=== PATIENT | female | born 2000 | race Caucasian/White ===

== ENCOUNTER 2019-01-25 12:30 | Emergency (ER) | payer OTHER ==
--- OUTSIDE RECORDS SUMMARY | 2019-01-25 13:31 | XMS REPORT | Continuity of Care Document ---
:2000 External Reference #:[id number] Author Name Rachelle Bee, PNP-BC, DIE TRY OUT WORKER, Ibclc Address [address] [place] [address] [address] [place] [address] Care Team Providers Name Role Phone Rachelle Bee PNP-BC, DIE TRY OUT WORKER, Ibclc Care Team Information Paid Search Marketing Strategist - Family Problems Active Problems Provider Date Asthma Martha Carmona M.D. Onset: 03/08/2015 Migraine without aura, not refractory Bridgette Vincent M.D. Onset: 12/16/2015 Social History Type Date Description Comments Sex Unknown ETOH Use Never used alcohol Tobacco Use Start: Unknown Patient has never smoked Tobacco Use Start: Unknown Parents DO Not Smoke Smoking Status Reviewed: 01/19/19 Parents DO Not Smoke Allergies, Adverse Reactions, Alerts Description No Known Drug Allergies Medications Active Medications SIG Qnty Indications Ordering Provider Date Olopatadine HCL 1-2 drops each 5ml H10.13 Rachelle Bee, 01/19/2019 0.1% eye twice a day PNP-BC, DIE TRY OUT WORKER, Solution as needed Ibclc Paxil 1 by mouth 30tabs F32.0 Rachelle Bee, 09/30/2018 20mg Tablets every day PNP-BC, DIE TRY OUT WORKER, Ibclc Ventolin HFA 1-2 puffs every 18gm Rachelle Bee, 02/09/2018 108(90Base) 4 hours as PNP-BC, DIE TRY OUT WORKER, mcg/Act Aerosol needed Ibclc Norethindrone take 1 pill by 63tabs Z30.41 Rachelle Bee, 12/16/2015 Acetate/Ethinyl mouth every PNP-BC, DIE TRY OUT WORKER, Estradiol daily x 21 days Ibclc 1-20mg-mcg and then no Tablets pills x 7 days History Medications Macrobid one by mouth 14caps Rachelle Bee, 12/29/2018 - 100mg Capsules twice a day x 7 PNP-BC, DIE TRY OUT WORKER, 12/29/2018 days Ibclc Macrobid 1 cap by mouth 10caps R30.0 Kolby Moreno MD 12/29/2018 - 100mg Capsules twice a day 01/19/2019 Lactulose 5ml by mouth 237ml K58.1 Rachelle Bee, 12/15/2018 - 10GM/15ML twice a day for PNP-BC, DIE TRY OUT WORKER, 12/29/2018 Solution 5 days Ibclc Singulair 1 by mouth 90tabs J45.20 Rachelle Bee, 12/15/2018 - 10mg Tablets every day PNP-BC, DIE TRY OUT WORKER, 12/29/2018 Ibclc Polyethylene Glycol use 1 capful in 510gm K59.00 Rachelle Bee, 2018 - 3350 8 oz of water PNP-BC, DIE TRY OUT WORKER, 12/29/2018 3350NF Powder or juice qd-bid Ibclc Paxil 1 tab by mouth 30tabs F32.0 Rachelle Bee, 08/26/2018 - 10mg Tablets daily PNP-BC, DIE TRY OUT WORKER, 09/30/2018 Ibclc Immunizations CPT Code Status Date Vaccine Lot # [id number] Given 01/19/2019 Influenza Virus Vaccine, Quadrivalent, 36 Mos+, [id number] .5ML 27018 Given 02/14/2018 Influenza Virus Vaccine, Quadrivalent, 36 Mos+, [id number] .5ML 60614 Given 05/17/2017 Influenza Virus Vaccine Quadrivalent Iiv4 [place] [id number] [address] Given 02/07/2016 Influenza Virus Vaccine Split Virus Use For [id number] Individual 3Yr Older 67669 Given 11/02/2015 Meningococcal Conjugate Vaccine Serogroups For [id number] Intramuscular Use Q2038 Given 03/08/2015 Influenza Vaccine (Fluzone) Age 3 And Older [id number] 64853 Given 03/08/2015 Gardasil [id number] 04506 Given 01/26/2013 Gardasil 57074 Given 12/01/2012 Gardasil 29163 Given 10/19/2010 Meningococcal Conjugate Vaccine Serogroups For Intramuscular Use 32752 Given 10/19/2010 Tdap injection 17295 Given 12/20/2009 Varicella (Chicken Pox) Vaccine 90485 Given 03/10/2008 Hepatitis A Vaccine Pediatric/Adolescent Dosage 2 Dose Schedule 83027 Given 12/11/2006 Varicella (Chicken Pox) Vaccine 65402 Given 12/11/2006 Hepatitis A Vaccine Pediatric/Adolescent Dosage 2 Dose Schedule 09635 Given 10/10/2004 DTaP Vaccine Younger Than 7 87017 Given 10/10/2004 MMR Vaccine, Live, For Subcutaneous Use 71226 Given 10/10/2004 Poliovirus Vaccine Subcutaneous Or Intramuscular 70500 Given 12/23/2001 Hepatitis B Vaccine Pediatric/Adolescent 99579 Given 12/23/2001 Poliovirus Vaccine Subcutaneous Or Intramuscular 32081 Given 12/23/2001 DTaP Vaccine Younger Than 7 64750 Given 12/23/2001 Hib PRP-T Conjugate 4 Dose Schedule 42861 Given 10/17/2000 MMR Vaccine, Live, For Subcutaneous Use 42099 Given 10/17/2000 Pneumococcal Conjugate Vaccine 7 Valent For Intramuscular Use 96338 Given 05/21/2000 Pneumococcal Conjugate Vaccine 7 Valent For Intramuscular Use 09058 Given 01/05/2000 DTaP Vaccine Younger Than 7 37222 Given 01/05/2000 Hepatitis B Vaccine Pediatric/Adolescent 30485 Given 1999 Hepatitis B Vaccine Pediatric/Adolescent 31865 Given 1999 Poliovirus Vaccine Subcutaneous Or Intramuscular 43280 Given 1999 DTaP Vaccine Younger Than 7 74947 Given 1999 Hib PRP-T Conjugate 4 Dose Schedule 24348 Given 1999 Hepatitis B Vaccine Pediatric/Adolescent 28587 Given 1999 Poliovirus Vaccine Subcutaneous Or Intramuscular 34496 Given 1999 DTaP Vaccine Younger Than 7 99622 Given 1999 Hib PRP-T Conjugate 4 Dose Schedule Vital Signs Date Vital Result Comment 01/19/2019 3:54pm BP Systolic 108 mmHg BP Diastolic 68 mmHg Body Temperature 97.9 F Heart Rate 67 /min Respiratory Rate 17 /min Height 64 inches 5'4" with shoes Weight 164.00 lb BMI (Body Mass Index) 28.1 kg/m2 BSA (Body Surface Area) 1.80 m2 [place] body weight in kilograms 54 kg Height Percentile 45 % Weight Percentile 89th 12/29/2018 2:44pm BP Systolic 119 mmHg BP Diastolic 81 mmHg Body Temperature 98.5 F Heart Rate 94 /min Respiratory Rate 16 /min Height 63 inches 5'3" Weight 161.25 lb BMI (Body Mass Index) 28.6 kg/m2 BSA (Body Surface Area) 1.76 m2 [place] body weight in kilograms 52 kg Height Percentile 31 % Weight Percentile 88th O2 % dC Oximetry 98 % Results Test Date Facility Test Result H/L Range Note CBC 12/29/2018 [facility] White Blood 10.5 K/uL Normal 3.1-10.7 1 W/Automated [address] [place] [address] [phone] Red Blood Count 3.78 M/uL Low 3.90-5.40 Hemoglobin 11.2 gm/dL Low 11.6-15.8 Hematocrit 34.3 % Low 36.0-46.1 Mean Cell Volume 90.7 fl Normal 80.9-99.0 Mean Corpuscular HGB 29.6 pg Normal 25.9-32.7 Mean Corpuscular HGB Conc 32.7 g/dL Normal 30.8-34.3 Platelet Count 363 K/uL High 155-360 Red Cell Distri Width SD 43.0 fl Normal 36-47 Red Cell Distri Width %CV 13.1 % Normal 11.7-14.4 Mean Platelet Volume 10.1 fl Normal 8.9-12.4 Neut% 79.9 % High 28.0-68.0 Lymph % 11.5 % Low 20.0-42.0 M[place]racken % 6.1 % Normal 4.3-13.2 Eo% 1.6 % Normal 0.0-6.6 Bas% 0.3 % Normal 0.0-1.1 Immature Grans 0.6 % Normal 0.0-5.0 NRBC % 0.0 /100WBC < 10/ 100 WBC Neut# 8.37 K/uL High 1.8-7.0 Lymph # 1.21 K/uL Normal 1.0-4.0 M[place]racken # 0.64 K/uL Normal 0.3-0.9 Eos # 0.17 K/uL Normal 0.0-0.5 Baso # 0.03 K/uL Normal 0.0-0.1 Immature Grans Absolute 0.06 K/uL NRBC # 0.00 K/uL Laboratory test 12/29/2018 [facility] D-Dimer, 0.57 [address] Quantitative ug/[place] [address] [phone] Urine Dipstick 12/29/2018 [facility] Ua Leuko 3+ High Negative Ua Nitrite positive Negative Ua Urobilinogen trace Low 0.2 - 1.0 E.U./dL Ua Protein trace Negative Ua PH 6.5 6.5-7.5 Ua Blood 3+ High Negative Ua Specific [place] 1.015 1.010-1.030 Ua Ketones - Negative Ua Bilirubin - Negative Ua Glucose - Negative Urine HCG 12/29/2018 [facility] Misc negative (Qualitative) Urine Culture 12/29/[address] Urine Culture ESCHERICHIA COLI Abnormal [address] [place] [address] [phone] Quantity > 100,000 CFU/mL 4 Ua RFX Micro & Culture 12/29/[address] Urine Color Yellow Yellow II [address] [place] [address] [phone] Urine Clarity Slightly Cloudy Clear Urine Glucose - Dipstick NEGATIVE mg/dL Negative Urine Bilirubin - Dipstick NEGATIVE Negative Urine Ketone NEGATIVE mg/dL Negative Urine Specific [place] 1.018 Normal 1.010-1.030 Urine Blood MODERATE Abnormal 0-2 Urine PH 6.5 Normal 6.5-7.5 Urine Protein - Dipstick TRACE mg/dL Negative Urine Urobilinogen - Dipstick 2.0 mg/dL < 2.0 Urine Nitrite - Dipstick NEGATIVE Negative Urine Leuk Esterase LARGE Abnormal Negative Urine RBC 11-20 rbc/hpf 0-2 Urine WBC 11-20 wbc/hpf 0-5 Urine Epithelial Cells MODERATE /lpf None Seen 5 Urine Bacteria MODERATE Abnormal None Seen Source: URINE, CLEAN CAT <SEE NOTE> 6 Culture If 12/29/[address] Culture If CULTURE TO 7 Indicated Comment [address] [place] [address] Indicated Comment FOLLO <[place] [address] NOTE> [phone] Source: URINE, CLEAN CAT <SEE NOTE> 8 Ast-GN67 12/29/[address] Nitrofurantoin <=16 Susceptible [address] [place], [place] [id number] [phone] Trimethoprim/Sulfamethoxazole <=20 Susceptible Ampicillin 8 Susceptible Cefazolin <=4 Susceptible Ampicillin/Sulbactam 4 Susceptible Ciprofloxacin <=0.25 Susceptible Piperacillin/Tazobactam <=4 Susceptible Ceftazidime <=1 Susceptible Ceftriaxone <=1 Susceptible Cefepime <=1 Susceptible Levofloxacin <=0.12 Susceptible Imipenem <=0.25 Susceptible Gentamicin <=1 Susceptible Tobramycin <=1 Susceptible Urine Culture 11/14/2018 [facility] Urine Culture MIXED URETHRAL F 9, [address] <SEE NOTE> [place] [id number] [phone] Quantity > 100,000 CFU/mL 11 Urine Dipstick 11/14/2018 [facility] Ua Color yellow Yellow Ua Clarity cloudy Clear Ua Leuko pos Negative Ua Nitrite neg Negative Ua Urobilinogen 3.5 High 0.2 - 1.0 E.U./dL Ua Protein pos Negative Ua PH 6.0 Low 6.5-7.5 Ua Blood pos Negative Ua Specific [place] 1.030 1.010-1.030 Ua Ketones neg Negative Ua Bilirubin neg Negative Ua Glucose neg Negative Laboratory 09/30/2018 [facility] Vitamin 42.3 30.0-100.0 12, 13 test finding [address] D,25-Hydroxy ng/mL [place], [place] [id number] [phone] 1 R30.0 R35.0 R07.89 2 <=0.49 ug/mL - Low likelihood of DIC, DVT or Pulmonary Embolism >0.49 ug/mL - Additional testing should be done to rule out DIC, DVT, or Pulmonary embolism as clinically indicated. ([facility] has established a 97.89% negative predictive value for thrombotic disease when a cutoff value of 0.5 ug/mL is used.) 3 ESCHERICHIA COLI 4 > 100,000 CFU/mL 5 POSSIBLE UROGENITAL CONTAMINATION. 6 URINE, CLEAN CATCH 7 CULTURE TO FOLLOW 8 URINE, CLEAN CATCH 9 R82.998 10 MIXED URETHRAL DONG 11 > 100,000 CFU/mL SPECIMEN IS A MIX OF GRAM NEGATIVE AND GRAM POSITIVE ORGANISMS. UNABLE TO DETERMINE WHICH ORGANISMS ARE FROM THE URINARY TRACT OR THE RESULT OF SKIN VAGINAL PERIANAL CONTAMINATION DURING COLLECTION. SUGGEST REPEAT SPECIMEN IF CLINICALLY INDICATED. 12 E55.9 13 Vitamin D deficiency has been defined by the [place] of [employer] and an Endocrine Society practice guideline as a level of serum 25-OH vitamin D less than 20 ng/mL (1,2). The Endocrine Society went on to further define vitamin D insufficiency as a level between 21 and 29 ng/mL (2). 1. IOM ([place] of [employer]). 2010. Dietary reference intakes for calcium and D. [place]: The National Academies Press. 2. Aliza MF, Chris VELÁSQUEZ, Adan TORRES, et al. Evaluation, treatment, and prevention of vitamin D deficiency: an Endocrine Society clinical practice guideline. JCEM. 2010; 96(2):1911-30. Performed at: RN - [facility] [address] [id number] Rn Lvn: Griselda Ziegler MD, Phone: [phone] Procedures Date Code Description Status 12/29/2018 67513 EKG-Tracing And Report Completed 09/30/2018 98133 Brief Emotional/Behav Assessment W/ Scoring Doc Per Completed [facility] 08/26/2018 78223 Brief Emotional/Behav Assessment W/ Scoring Doc Per Completed [facility] Medical Devices Description No Information Available Encounters Type Date Location Provider Dx Diagnosis Office Visit 01/19/2019 Family Medicine Rachelle Bee, J30.9 Allergic rhinitis, 4:[address]p [address] PNP-BC, DIE TRY OUT WORKER, unspecified Ibclc H10.13 Acute atopic conjunctivitis, bilateral Z23 Encounter for immunization Office Visit 12/29/2018 2:50p Family Medicine [address] Kolby Moreno MD R30.0 Dysuria R35.0 Frequency of micturition R07.89 Other chest pain Office Visit 12/15/2018 3:15p Family Medicine Rachelle Bee, K58.[address] PNP-BC, DIE TRY OUT WORKER, syndrome with Ibclc constipation J45.20 Mild intermittent asthma, uncomplicated M25.562 Pain in left knee Office Visit 09/30/2018 3:30p Family Rachelle Patten, F32.[address] PNP-BC, DIE TRY OUT WORKER, disorder, single Ibclc episode, mild K59.00 Constipation, unspecified Office Visit 08/26/2018 3:30p Family Rachelle Patten, F32.[address] PNP-BC, DIE TRY OUT WORKER, disorder, single Ibclc episode, mild F41.9 Anxiety disorder, unspecified Assessments Date Code Description Provider 01/19/2019 J30.9 Allergic rhinitis, unspecified Cristal, Rachelle, PNP-BC, DIE TRY OUT WORKER, Ibclc 01/19/2019 H10.13 Acute atopic conjunctivitis, Rachelle Bee, PNP-BC, DIE TRY OUT WORKER, bilateral Ibclc 01/19/2019 Z23 Encounter for immunization Rachelle Bee PNP-BC, DIE TRY OUT WORKER, Ibclc 12/29/2018 R30.0 Dysuria Kolby Moreno MD 12/29/2018 R35.0 Frequency of micturition Kolby Moreno MD 12/29/2018 R07.89 Other chest pain Kolby Moreno MD 12/15/2018 K58.1 Irritable bowel syndrome with Rachelle Bee, MARIAM-BC, DIE TRY OUT WORKER, constipation Ibclc 12/15/2018 J45.20 Mild intermittent asthma, Rachelle Bee, PNP-BC, DIE TRY OUT WORKER, uncomplicated Ibclc 12/15/2018 M25.562 Pain in left knee Rachelle Bee PNP-BC, DIE TRY OUT WORKER, Ibclc 11/14/2018 R82.998 Other abnormal findings in urine Elissa Fam MD 11/14/2018 R82.998 Other abnormal findings in urine Family Nurse 09/30/2018 F32.0 Major depressive disorder, single Rachelle Bee, PNP-BC, DIE TRY OUT WORKER, episode, mild Ibclc 09/30/2018 K59.00 Constipation, unspecified Rachelle Bee, PNP-BC, DIE TRY OUT WORKER, Ibclc 08/26/2018 F32.0 Major depressive disorder, single Rachelle Bee, PNP-BC, DIE TRY OUT WORKER, episode, mild Ibclc 08/26/2018 F41.9 Anxiety disorder, unspecified Rachelle Bee, PNP-BC, DIE TRY OUT WORKER, Ibclc Plan of Treatment 01/19/2019 - Rachelle Bee PNP-BC, DIE TRY OUT WORKER, CamhdX65.9 Allergic rhinitis, unspecifiedComments:keep taking your claritin if not improving in the next few days let me know.try cool compresses as well.H10.13 Acute atopic conjunctivitis , bilateralNew Medication:Olopatadine HCL 0.1 % - 1-2 drops each eye twice a day as [id number] Encounter for immunization Functional Status Description No Information Available Mental Status Description No Information Available Referrals Description No Information Available
--- OUTSIDE RECORDS SUMMARY | 2019-01-25 13:31 | XMS REPORT | Continuity of Care Document ---
:1999 External Reference #:[id number] Author Name Kolby Moreno MD Address [address] [place] [address] Care Team Providers Name Role Phone Rachelle Bee, PNP-BC, INSTRUCTIONAL AIDE, Ibclc Care Team Information Medicine Tech - Family Problems Active Problems Provider Date Asthma Martha Carmona M.D. Onset: 03/08/2015 Migraine without aura, not refractory Bridgette Vincent M.D. Onset: 12/16/2015 Social History Type Date Description Comments Sex Unknown ETOH Use Never used alcohol Tobacco Use Start: Unknown Patient has never smoked Tobacco Use Start: Unknown Parents DO Not Smoke Smoking Status Reviewed: 12/29/18 Parents DO Not Smoke Allergies, Adverse Reactions, Alerts Description No Known Drug Allergies Medications Active Medications SIG Qnty Indications Ordering Provider Date Macrobid 1 cap by mouth 10caps R30.0 Kolby Moreno MD 12/29/2018 100mg Capsules twice a day Paxil 1 by mouth 30tabs F32.0 Rachelle Bee, 09/30/2018 20mg Tablets every day PNP-BC, INSTRUCTIONAL AIDE, Ibclc Ventolin HFA 1-2 puffs every 18gm Rachelle Bee, 02/09/2018 108(90Base) 4 hours as PNP-BC, INSTRUCTIONAL AIDE, mcg/Act Aerosol needed Ibclc Norethindrone take 1 pill by 63tabs Z30.41 Rachelle Bee, 12/16/2015 Acetate/Ethinyl mouth every PNP-BC, INSTRUCTIONAL AIDE, Estradiol daily x 21 days Ibclc 1-20mg-mcg and then no Tablets pills x 7 days History Medications Macrobid one by mouth 14caps Rachelle Bee, 12/29/2018 - 100mg Capsules twice a day x 7 PNP-BC, INSTRUCTIONAL AIDE, 12/29/2018 days Ibclc Lactulose 5ml by mouth 237ml K58.1 Rachelle Bee, 12/15/2018 - 10GM/15ML twice a day for PNP-BC, INSTRUCTIONAL AIDE, 12/29/2018 Solution 5 days Ibclc Singulair 1 by mouth 90tabs J45.20 Rachelle Bee, 12/15/2018 - 10mg Tablets every day PNP-BC, INSTRUCTIONAL AIDE, 12/29/2018 Ibclc Polyethylene Glycol use 1 capful in 510gm K59.00 Rachelle Bee, 2018 - 3350 8 oz of water PNP-BC, INSTRUCTIONAL AIDE, 12/29/2018 [id number] Powder or juice qd-bid Ibclc Paxil 1 tab by mouth 30tabs F32.0 Rachelle Bee, 08/26/2018 - 10mg Tablets daily PNP-BC, INSTRUCTIONAL AIDE, 09/30/2018 Ibclc Vitamin D 1 cap by mouth 8caps Rachelle Bee, 07/21/2018 - (Ergocalciferol) one time per PNP-BC, INSTRUCTIONAL AIDE, 09/30/2018 week for 8 Ibclc [id number] Capsules weeks Immunizations CPT Code Status Date Vaccine Lot # [id number] Given 02/14/2018 Influenza Virus Vaccine, Quadrivalent, 36 Mos+, [id number] 45635 Given 05/17/2017 Influenza Virus Vaccine Quadrivalent Iiv4 [place] [id number] [address] Given 02/07/2016 Influenza Virus Vaccine Split Virus Use For [id number] Individual 3Yr Older 04731 Given 11/02/2015 Meningococcal Conjugate Vaccine Serogroups For [id number] Intramuscular Use Q2038 Given 03/08/2015 Influenza Vaccine (Fluzone) Age 3 And Older [id number] 10293 Given 03/08/2015 Gardasil [id number] 35177 Given 01/26/2013 Gardasil 57744 Given 12/01/2012 Gardasil 43847 Given 10/19/2010 Tdap injection 87283 Given 10/19/2010 Meningococcal Conjugate Vaccine Serogroups For Intramuscular Use 17798 Given 12/20/2009 Varicella (Chicken Pox) Vaccine 53780 Given 03/10/2008 Hepatitis A Vaccine Pediatric/Adolescent Dosage 2 Dose Schedule 29454 Given 12/11/2006 Varicella (Chicken Pox) Vaccine 85068 Given 12/11/2006 Hepatitis A Vaccine Pediatric/Adolescent Dosage 2 Dose Schedule 42895 Given 10/10/2004 Poliovirus Vaccine Subcutaneous Or Intramuscular 06450 Given 10/10/2004 MMR Vaccine, Live, For Subcutaneous Use 19500 Given 10/10/2004 DTaP Vaccine Younger Than 7 17457 Given 12/23/2001 Hib PRP-T Conjugate 4 Dose Schedule 81574 Given 12/23/2001 DTaP Vaccine Younger Than 7 10900 Given 12/23/2001 Poliovirus Vaccine Subcutaneous Or Intramuscular 20947 Given 12/23/2001 Hepatitis B Vaccine Pediatric/Adolescent 07081 Given 10/17/2000 MMR Vaccine, Live, For Subcutaneous Use 29105 Given 10/17/2000 Pneumococcal Conjugate Vaccine 7 Valent For Intramuscular Use 51924 Given 05/21/2000 Pneumococcal Conjugate Vaccine 7 Valent For Intramuscular Use 84926 Given 01/05/2000 Hepatitis B Vaccine Pediatric/Adolescent 73508 Given 01/05/2000 DTaP Vaccine Younger Than 7 54184 Given 1999 Hepatitis B Vaccine Pediatric/Adolescent 10299 Given 1999 Poliovirus Vaccine Subcutaneous Or Intramuscular 95677 Given 1999 DTaP Vaccine Younger Than 7 22538 Given 1999 Hib PRP-T Conjugate 4 Dose Schedule 57019 Given 1999 Hepatitis B Vaccine Pediatric/Adolescent 92501 Given 1999 Poliovirus Vaccine Subcutaneous Or Intramuscular 52307 Given 1999 DTaP Vaccine Younger Than 7 02809 Given 1999 Hib PRP-T Conjugate 4 Dose Schedule Vital Signs Date Vital Result Comment 12/29/2018 2:44pm BP Systolic 119 mmHg BP Diastolic 81 mmHg Body Temperature 98.5 F Heart Rate 94 /min Respiratory Rate 16 /min Height 63 inches 5'3" Weight 161.25 lb BMI (Body Mass Index) 28.6 kg/m2 BSA (Body Surface Area) 1.76 m2 [place] body weight in kilograms 52 kg Height Percentile 31 % Weight Percentile 88th O2 % BldC Oximetry 98 % 12/15/2018 3:19pm BP Systolic 111 mmHg BP Diastolic 70 mmHg Body Temperature 98.7 F Heart Rate 66 /min Respiratory Rate 16 /min Height 63 inches 5'3" Weight 161.00 lb BMI (Body Mass Index) 28.5 kg/m2 BSA (Body Surface Area) 1.76 m2 [place] body weight in kilograms 52 kg Height Percentile 31 % Weight Percentile 88th O2 % BldC Oximetry 98 % Results Test Date Facility Test Result H/L Range Note Urine Dipstick 12/29/2018 [facility] Ua Leuko 3+ High Negative Ua Nitrite positive Negative Ua Urobilinogen trace Low 0.2 - 1.0 E.U./dL Ua Protein trace Negative Ua PH 6.5 6.5-7.5 Ua Blood 3+ High Negative Ua Specific [place] 1.015 1.010-1.030 Ua Ketones - Negative Ua Bilirubin - Negative Ua Glucose - Negative Urine HCG 12/29/2018 [facility] Misc negative (Qualitative) Urine Culture 11/14/2018 [facility] Urine Culture MIXED URETHRAL 1, [address] <SEE NOTE> [place] [address] [phone] Quantity > 100,000 CFU/mL 3 Urine Dipstick 11/14/2018 [facility] Ua Color yellow Yellow Ua Clarity cloudy Clear Ua Leuko pos Negative Ua Nitrite neg Negative Ua Urobilinogen 3.5 High 0.2 - 1.0 E.U./dL Ua Protein pos Negative Ua PH 6.0 Low 6.5-7.5 Ua Blood pos Negative Ua Specific [place] 1.030 1.010-1.030 Ua Ketones neg Negative Ua Bilirubin neg Negative Ua Glucose neg Negative Laboratory 09/30/2018 [facility] Vitamin 42.3 30.0-100.0 4, 5 test finding [address] D,25-Hydroxy ng/mL [place], [place] [id number] [phone] Lyme Igg & Igm 07/17/2018 [facility] Lyme AB Igg By . 6 By Western [address] [place] [address] [phone] P93 AB Absent . P66 AB Absent . P58 AB Absent . P45 AB Absent . P41 AB Absent . P39 AB Absent . P30 AB Absent . P28 AB Absent . P23 AB Absent . P18 AB Absent . Lyme Igg WB Interpretation Negative . 7 Lyme AB Igm By Western Blot . P41 AB Absent . P39 AB Absent . P23 AB Absent . Lyme Igm WB Interpretation Negative . 8 Laboratory test finding 07/17/2018 [facility] Estrogen,Total 72 pg/mL . [address] [place], [place] [id number] [phone] Vitamin D,25-Hydroxy 13.9 ng/mL Low 30.0-100.0 10 TSH Reflex 07/17/2018 [facility] Thyroid Stim 3.52 uIU/mL Normal 0.30-4.20 FT4 And/Or [address] Hormone FT3 [place] [address] [phone] Reflex add FT3? Y Reflex add FT4? Y Systemic Lupus 07/17/2018 [facility] Ra Latex <10.0 IU/mL 0.0-13.9 Erythem. Profil [address] [place] [address] [phone] Anti-Dna Antibody ([place]) <1 IU/mL 0-9 11 SM Antibody <0.2 AI 0.0-0.9 PHARMACY SERVICES REPRESENTATIVE Antibody <0.2 AI 0.0-0.9 Sjogrens Antibodies (Ssa) <0.2 AI 0.0-0.9 Antichromatin Antibodies <0.2 AI 0.0-0.9 Sjogrens Antibodies (SSB) <0.2 AI 0.0-0.9 CBC 07/17/2018 [facility] White Blood Count 8.4 K/uL Normal 3.1-10.[address] [place] [address] [phone] Red Blood Count 4.53 M/uL Normal 3.90-5.40 Hemoglobin 13.4 gm/dL Normal 11.6-15.8 Hematocrit 40.4 % Normal 36.0-46.1 Mean Cell Volume 89.2 fl Normal 80.9-99.0 Mean Corpuscular HGB 29.6 pg Normal 25.9-32.7 Mean Corpuscular HGB Conc 33.2 g/dL Normal 30.8-34.3 Platelet Count 421 K/uL High 155-360 Red Cell Distri Width SD 39.7 fl Normal 36-47 Red Cell Distri Width %CV 12.3 % Normal 11.7-14.4 Mean Platelet Volume 10.5 fl Normal 8.9-12.4 NRBC % 0.0 /100WBC < 10/ 100 WBC C-Reactive 07/17/2018 [facility] C-Reactive 4.8 mg/L High <3.0 Protein,Quant [address] Protein,[place] [address] [phone] Reflex add FT3? Y Reflex add FT4? Y Lyme AB/Western 07/17/2018 [facility] Lyme Total 1.02 ISR High 0.00-0.90 12 Blot Reflex [address] AB/[place] [address] WB [phone] Lyme Disease Antibody,QT,Igm 1.04 index High 0.00-0.79 13 Rheumatoid 07/17/2018 [facility] Rheumatoid < 10.0 Normal 0.0-15.0 Factor Screen [address] Factor Screen IU/[place] [address] [phone] Reflex add FT3? Y Reflex add FT4? Y Uric Acid 07/17/2018 [facility] Uric Acid 4.2 mg/dL Normal 2.6-6.[address] [place] [address] [phone] Reflex add FT3? Y Reflex add FT4? Y Rheumatoid 07/17/2018 [facility] Sedimentation 2 mm/hr Normal 2-40 14 Panel ([facility]) [address] [place] [address] [phone] Antinuclear Antibodies, Ifa Negative . 15 Ebv Acute 07/17/2018 [facility] Ebv AB <36.0 U/mL 0.0-35.9 [address] Vca,[place] [address] [phone] Ebv Early Antigen AB, IgG <9.0 U/mL 0.0-8.9 17 Ebv AB Vca,Igg <18.0 U/mL 0.0-17.9 18 Ebv Nuclear Antigen AB, Igg <18.0 U/mL 0.0-17.9 19 Ebv Interpretation (SEE NOTE) 20 Comprehensive Metabolic 07/17/2018 [facility] Glucose 62 mg/dL Low 74-[address] [place] [address] [phone] BUN 11 mg/dL Normal 7-18 Creatinine 0.8 mg/dL Normal 0.6-1.3 Glom Filtration Rate, Estimate >60 mL/min >60 If >60 mL/min >60 21 BUN/Creat 13.7 ratio Sodium 138 mmol/L Normal 136-145 Potassium 3.9 mmol/L Normal 3.5-5.1 Chloride 107 mmol/L Normal 98-107 Carbon Dioxide 25 mmol/L Normal 21-32 Anion Gap 6 mEq/L Low 8-16 Calcium 8.8 mg/dL Normal 8.5-10.1 Total Protein 8.0 g/dL Normal 6.4-8.2 Albumin 4.2 g/dL Normal 3.4-5.0 Globulin 3.8 g/dL Normal 1.9-4.3 Alb/Glob 1.1 ratio Bilirubin,Total 0.4 mg/dL Normal 0.2-1.0 Sgot/Ast 14 U/L Low 15-37 22 SGPT/Alt 22 U/L Normal 12-78 Alkaline Phosphatase 73 U/L Normal 45-117 Reflex add FT3? Y Reflex add FT4? Y 1 R82.998 2 MIXED URETHRAL DONG 3 > 100,000 CFU/mL SPECIMEN IS A MIX OF GRAM NEGATIVE AND GRAM POSITIVE ORGANISMS. UNABLE TO DETERMINE WHICH ORGANISMS ARE FROM THE URINARY TRACT OR THE RESULT OF SKIN VAGINAL PERIANAL CONTAMINATION DURING COLLECTION. SUGGEST REPEAT SPECIMEN IF CLINICALLY INDICATED. 4 E55.9 5 Vitamin D deficiency has been defined by the [place] of [employer] and an Endocrine Society practice guideline as a level of serum 25-OH vitamin D less than 20 ng/mL (1,2). The Endocrine Society went on to further define vitamin D insufficiency as a level between 21 and 29 ng/mL (2). 1. IOM ([place] [employer]). 2010. Dietary reference intakes for calcium and D. [place]: The National Academies Press. 2. Aliza MF, Chris NC, Adan TORRES, et al. Evaluation, treatment, and prevention of vitamin D deficiency: an Endocrine Society clinical practice guideline. JCEM. 2010; 96(7):1911-30. Performed at: RN - [facility] [address] [id number] Aircraft Tool Maker: Griselda Ziegler MD, Phone: [phone] 6 I56.55 N95.07 9 Positive: 5 of the following Borrelia-specific bands: 18,23,28,30,39,41,45,58, 66, and 93. Negative: No bands or banding patterns which do not meet positive criteria. 8 Note: An equivocal or positive EIA result followed by a negative Western Blot result is considered NEGATIVE. An equivocal or positive EIA result followed by a positive Western Blot is considered POSITIVE by the CDC. Positive: 2 of the following bands: 23,39 or 41 Negative: No bands or banding patterns which do not meet positive criteria. Criteria for positivity are those recommended by CDC/ASTPHLD. p23=[place], i22=duiodjvfi Note: Sera from individuals with the following may cross react in the Lyme Western Blot assays: other spirochetal diseases (periodontal disease, leptospirosis, relapsing fever, yaws, and pinta); connective autoimmune (Rheumatoid Arthritis and Systemic Lupus Erythematosus and also individuals with Antinuclear Antibody); other infections ([place] Spotted Fever; Felix-Urbina Virus, and Cytomegalovirus). 9 Prepubertal <40 Female Cycle: 1-10 Days 61 - 394 11-20 Days 122 - 437 21-30 Days 156 - 350 Post-Menopausal <40 HMG Treatment for Ovulation Induction: 400 - 800 10 Vitamin D deficiency has been defined by the [place] [employer] and an Endocrine Society practice guideline as a level of serum 25-OH vitamin D less than 20 ng/mL (1,2). The Endocrine Society went on to further define vitamin D insufficiency as a level between 21 and 29 ng/mL (2). 1. IOM ([place] [employer]). 2010. Dietary reference intakes for calcium and D. [place]: The National Academies Press. 2. Aliza MF, Chris NC, Adan TORRES, et al. Evaluation, treatment, and prevention of vitamin D deficiency: an Endocrine Society clinical practice guideline. JCEM. 2010; 96(7):1911-30. Performed at: RN - [facility] [address] [id number] Aircraft Tool Maker: Griselda Ziegler MD, Phone: [phone] 11 Negative <5 Equivocal 5 - 9 Positive >9 12 Negative <0.91 Equivocal 0.91 - 1.09 Positive >1.09 13 Negative <0.80 Equivocal 0.80 - 1.19 Positive >1.19 IgM levels may peak at 3-6 weeks post infection, then gradually decline. 14 This result was obtained with an ESR method that is not based on the standard Westergren Method. When comparing results obtained from the traditional Westergren ESR and this method it is important to refer to the reference range for each method. Method: Capillary Photometry 15 Negative <1:80 Borderline 1:80 Positive >1:80 Performed at: [facility] [id number] Aircraft Tool Maker: Griselda Ziegler MD, Phone: [phone] Performed at: [facility] [id number] Aircraft Tool Maker: Nelson Soto MD, Phone: [phone] 16 Negative <36.0 Equivocal 36.0 - 43.9 Positive >43.9 17 Negative < 9.0 Equivocal 9.0 - 10.9 Positive >10.9 18 Negative <18.0 Equivocal 18.0 - 21.9 Positive >21.9 19 Negative <18.0 Equivocal 18.0 - 21.9 Positive >21.9 20 EBV Interpretation Chart Interpretation EBV-IgM EA(D)-IgG VCA-IgG EBNA-IgG EBV Seronegative - - - - Early Phase + - - - Acute Primary + +or- + - Infection Convalescence/Past - +or- + + Infection Reactivated +or- + + + Infection + Antibody Present - Antibody Absent 21 Note: Persistent reduction for 3 months or more in an eGFR <60 mL/min/1.73 m2 defines CKD. Patients with eGFR values >/=60 mL/min/1.73 m2 may also have CKD if evidence of persistent proteinuria is present. The original MDRD equation for estimated GFR is not valid for patients less than 18 years of age. Additional information may be found at www.kdoqi.org. 22 Values below the stated reference ranges of AST and ALT can be seen in normal populations. Clinical correlation is suggested. Procedures Date Code Description Status 12/29/2018 65598 EKG-Tracing And Report Completed 09/30/2018 24299 Brief Emotional/Behav Assessment W/ Scoring Doc Per Completed [facility] 08/26/2018 22435 Brief Emotional/Behav Assessment W/ Scoring Doc Per Completed [facility] Medical Devices Description No Information Available Encounters Type Date Location Provider Dx Diagnosis Office Visit 12/15/2018 Family Medicine Rachelle Bee, K58.1 Irritable bowel 3:15p [address] PNP-BC, INSTRUCTIONAL AIDE, syndrome with Ibclc constipation J45.20 Mild intermittent asthma, uncomplicated M25.562 Pain in left knee Office Visit 09/30/2018 3:30p Family Medicine Rachelle Bee, F32.[address] PNP-BC, INSTRUCTIONAL AIDE, disorder, single Ibclc episode, mild K59.00 Constipation, unspecified Office Visit 08/26/2018 3:30p Family Medicine Rachelle Bee, F32.[address] PNP-BC, INSTRUCTIONAL AIDE, disorder, single Ibclc episode, mild F41.9 Anxiety disorder, unspecified Office Visit 07/17/2018 3:15p Family Medicine Rachelle Bee, R53.[address] PNP-BC, INSTRUCTIONAL AIDE, Ibclc R53.81 Other malaise Assessments Date Code Description Provider 12/29/2018 R30.0 Dysuria Kolby Moreno MD 12/29/2018 R07.89 Other chest pain Kolby Moreno MD 12/29/2018 R35.0 Frequency of micturition Kolby Moreno MD 12/15/2018 K58.1 Irritable bowel syndrome with Rachelle Bee, PNP-BC, INSTRUCTIONAL AIDE, constipation Ibclc 12/15/2018 J45.20 Mild intermittent asthma, Rachelle Bee, PNP-BC, INSTRUCTIONAL AIDE, uncomplicated Ibclc 12/15/2018 M25.562 Pain in left knee Rachelle Bee, PNP-BC, INSTRUCTIONAL AIDE, Ibclc 11/14/2018 R82.998 Other abnormal findings in urine Elissa Fam MD 11/14/2018 R82.998 Other abnormal findings in urine Family Nurse 09/30/2018 F32.0 Major depressive disorder, single Rachelle Bee, PNP-BC, INSTRUCTIONAL AIDE, episode, mild Ibclc 09/30/2018 K59.00 Constipation, unspecified Rachelle Bee, PNP-BC, INSTRUCTIONAL AIDE, Ibclc 08/26/2018 F32.0 Major depressive disorder, single Rachelle Bee, PNP-BC, INSTRUCTIONAL AIDE, episode, mild Ibclc 08/26/2018 F41.9 Anxiety disorder, unspecified Rachelle Bee, PNP-BC, INSTRUCTIONAL AIDE, Ibclc 07/17/2018 R53.83 Other fatigue Rachelle Bee, PNP-BC, INSTRUCTIONAL AIDE, Ibclc 07/17/2018 R53.81 Other malaise Rachelle Bee, PNP-BC, INSTRUCTIONAL AIDE, Ibclc Plan of Treatment 12/29/2018 - Kolby Moreno, MDR30.0 DysuriaNew Medication:Macrobid 100 mg - 1 cap by mouth twice a dayNew Labs:Urine Culture, Ordered: 12/29/18R07.89 Other chest painNew Labs:D-Dimer, Quantitative, Ordered: 12/29/18CBC W/Automated Diff, Ordered: 12/29/18R35.0 Frequency of micturitionNew Labs:Ua RFX Micro & Culture II, Ordered: 12/29/18 Functional Status Description No Information Available Mental Status Description No Information Available Referrals Description No Information Available
[2019-01-25 13:48] VITALS: BP 110/66
--- NOTE | 2019-01-25 14:04 | UC ---
Complaint Female HPI - HPI Summary HPI Summary: Pt had allergic conjunctivitis a few weeks ago for which she sought treatment. She was given allergy eye drops. Symptoms improved somewhat but now the patient has had purulent drainage from both eyes and they were crusted shut this morning. She also was treated for a UTI a few weeks ago with Macrobid twice a day for 7 days but she feels the UTI never cleared up. She denies any abnormal vaginal discharge. She is not sexually active - History Of Current Complaint Chief Complaint: UCGU Stated Complaint: B/L EYE COMPLAINT, URINARY Time Seen by Provider: 01/25/19 13:41 Hx Obtained From: Patient Hx Last Menstrual Period: 01/13/19 ?: No Onset/Duration: Gradual Onset Timing: Intermittent Severity Initially: Mild Severity Currently: Mild Pain Intensity: 4 Character: Burning Aggravating Factor(s): Urination Associated Signs And Symptoms: Negative: Vaginal Bleeding/Discharge, Vaginal Discharge - Allergies/Home Medications Allergies/Adverse Reactions: Allergies Allergy/AdvReac Type Severity Reaction Status Date / Time No Known Allergies Allergy Verified 01/25/19 13:40 Home Medications: Home Medications Bcp 1 tab PO DAILY 01/25/19 [History] Loratadine [Claritin 10 MG CAP] 10 mg PO DAILY 01/25/19 [History Confirmed 01/25] PARoxetine HCL TAB* [Paxil TAB*] 20 mg PO DAILY 01/25/19 [History Confirmed 10/08] PMH/Surg Hx/FS Hx/Imm Hx Previously Healthy: Yes - Surgical History Surgical History: None - Family History Known Family History: Positive: Non-Contributory - Social History Lives: With Family Alcohol Use: None Substance Use Type: None Smoking Status (MU): Never Smoked Tobacco Review of Systems All Other Systems Reviewed And Are Negative: Yes Constitutional: Positive: Chills Eyes: Positive: Drainage - purulent drainage this morning with eyes crusted shut , Eye Redness Genitourinary: Positive: Dysuria, Frequency, Urgency. Negative: Vaginal/Penile Burning, Vaginal/Penile Itching, Vaginal/Penile Discharge, Vaginal/Penile Pain, Vaginal/Penile Tenderness Is Patient Immunocompromised?: No Physical Exam Triage Information Reviewed: Yes Appearance: Well-Appearing, No Pain Distress, Well-Nourished Vital Signs: Initial Vital Signs Temp 98.4 F 01/25/19 13:41 Pulse 81 01/25/19 13:41 Resp 15 01/25/19 13:41 BP 110/66 01/25/19 13:41 Pulse Ox 100 01/25/19 13:41 Vital Signs Reviewed: Yes Eyes: Positive: Conjunctiva Inflamed, Other: - Watery drainage at this point in time. PERRLA, EOMI ENT: Positive: Hearing grossly normal, Pharynx normal, Nasal drainage - clear nasal coryza, TMs normal, Uvula midline Neck exam: Normal Neck: Positive: Supple, Nontender, No Lymphadenopathy Respiratory: Positive: Lungs clear, Normal breath sounds, No respiratory distress, No accessory muscle use Cardiovascular: Positive: RRR, No Murmur, Pulses Normal, Brisk Capillary Refill Abdomen Description: Positive: Nontender, No Organomegaly, Soft. Negative: CVA Tenderness (R), CVA Tenderness (L), Distended, Guarding, Hepatomegaly, McBurney' s Point Tenderness, Peritoneal Signs, Splenomegaly Bowel Sounds: Positive: Present Musculoskeletal Exam: Normal Neurological Exam: Normal Psychological Exam: Normal Skin Exam: Normal Complaint Female Dx - Course Course Of Treatment: urinalysis: Positive for leukocytes and urinary tract infection. Urine : Negative I am going to treat the patient for bilateral conjunctivitis as well as urinary tract infection. She is to follow-up with a mortgage accounting clerk if no improvement in the conjunctivitis over the next 2 days. Increase fluids. - Differential Dx/Diagnosis Provider Diagnosis: UTI (urinary tract infection), Bilateral conjunctivitis Discharge ED - Sign-Out/Discharge Documenting (check all that apply): Patient Departure All imaging exams completed and their final reports reviewed: No Studies - Discharge Plan Condition: Good Disposition: HOME Prescriptions: Sulfamethox/Trimethoprim DS* [Bactrim DS 800/160 TAB*] 1 tab PO BID 5 Days #10 tab Tobramycin 0.3% OPHTH.SUHAS* 1 drop BOTH EYES Q4H 7 Days #1 btl Patient Education Materials: Urinary Tract Infection in Women (DC), Conjunctivitis (ED) Referrals: Rachelle Bee NP [Primary Care Provider] - Additional Instructions: Increase fluids. Definite follow up with an ophthamologist in 3-4 days if no improvement. Follow up with your primary care doctor or ENVELOPE FOLD OPERATOR doctor if no improvement in urinary symptoms. Go to the ER if you develop fever, chills, vomiting and unable to keep the medicine down. - Billing Disposition and Condition Condition: GOOD Disposition: Home - Attestation Statements Provider Attestation: I was available for consult. This patient was seen by the RUBEN. The patient was not presented to , seen by or examined by me -Bess Russell MD
== END 2019-01-25 14:25 | disposition home or self-care (01) ==
LOC: UCCORT 12:30
DX: H10.9 Unspecified conjunctivitis (principal); N39.0 Urinary tract infection, site not specified; N89.8 Other specified noninflammatory disorders of vagina
CPT/HCPCS: 81003; 84702; 87086; 99202; G0463